=== PATIENT | female | born 1985 | race Caucasian/White ===

== ENCOUNTER 2016-10-20 06:54 | Emergency (ER) | payer BC ==
[2016-10-20 07:10] VITALS: TEMP 98.2; O2SAT 99
--- NOTE | 2016-10-20 07:36 | ED PDOC ---
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 Patient notes intermittent brown/pink spotting through out secondary to a hematoma, notes last U/S 1 week ago normal with no hematoma seen and bleeding today is bright red. Patient denies abdominal pain, back pain, nausea, vomiting, urine changes or weakness. No weakness. 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 Finney Past Medical History Reviewed: Historical Data, Nursing Documentation, Vital Signs Vital Signs: Last Vital Signs Temp 98.2 F 10/20/16 07:05 Pulse 101 H 10/20/16 07:05 Resp 14 10/20/16 07:05 BP 118/76 10/20/16 07:05 Pulse Ox 99 10/20/16 07:05 - Medical History PMH: No Chronic Diseases - Surgical History Surgical History: No Surg Hx - Family History Family History: States: No Known Family Hx - Living Arrangements Living Arrangements: With Family - Allergies Allergies/Adverse Reactions: Allergies Allergy/AdvReac Type Severity Reaction Status Date / Time No Known Allergies Allergy Verified 10/20/16 08:01 Review of Systems ROS Statement: Except As Marked, All Systems Reviewed And Found Negative Constitutional: Negative for: Weakness Cardiovascular: Negative for: Chest Pain, Palpitations Respiratory: Negative for: Shortness of Breath Gastrointestinal: Negative for: Nausea, Vomiting, Abdominal Pain Genitourinary Female: Positive for: Vaginal Bleeding. Negative for: Dysuria, Hematuria Neurological: Negative for: Weakness Physical Exam - Reviewed Nursing Documentation Reviewed: Yes Vital Signs Reviewed: Yes - Physical Exam Appears: Positive for: Non-toxic, No Acute Distress Skin: Positive for: Normal Color, Warm. Negative for: Pallor Eye Exam: Positive for: Normal appearance Neck: Positive for: Normal, Painless ROM Cardiovascular/Chest: Positive for: Regular Rate, Rhythm. Negative for: Murmur Respiratory: Positive for: Normal Breath Sounds. Negative for: Respiratory Distress Gastrointestinal/Abdominal: Positive for: Normal Exam. Negative for: Tenderness Back: Positive for: Normal Inspection. Negative for: L CVA Tenderness, R CVA Tenderness Extremity: Positive for: Normal ROM. Negative for: Tenderness, Pedal Edema Neurologic/Psych: Positive for: Alert, Oriented - Laboratory Results Result Diagrams: 10/20/16 08:20 10/20/16 08:20 Interpretation Of Abn Labs: no acute - ECG O2 Sat by Pulse Oximetry: 99 (RA) Pulse Ox Interpretation: Normal - Progress ED Course And Treament: 913: Spoke with Dr. Espinoza. Well aware of pt. Pt. is very aggressive in her office and on evaluations as well. She is aware of all findings here. Wants pt. to be dc and fu with her. Stable. AAOx3. Pain free. Tolerated PO. Pt. has been aggressive with staff and noncompliant throughout ER visit. Medical Decision Making Medical Decision Making: Time: 0710 Initial impression: Threatened Initial plan: -- ABO/RH -- Type and screen -- Beta-HcG -- CMP -- Urine preg -- Urine dip -- CBC -- U/S Scribe Attestation: Documented by Nevaeh Mcginnis acting as a scribe for Feliciano Pruitt MD MD Scribe Attestation: All medical record entries made by the Scribe were at my direction and personally dictated by me. I have reviewed the chart and agree that the record accurately reflects my personal performance of the history, physical exam, medical decision making, and the department course for this patient. I have also personally directed, reviewed, and agree with the discharge instructions and disposition. Disposition - Clinical Impression Clinical Impression: Vaginal bleeding in - Patient ED Disposition Is Patient to be Admitted: No Counseled Patient/Family Regarding: Studies Performed, Diagnosis, Need For Followup - Disposition Referrals: Mauricio Finney MD [Staff Provider] - 10/21/16 Disposition: Routine/Home Disposition Time: 09:15 Condition: STABLE Additional Instructions: Return if not better in 3 days. Instructions: (ED)
[2016-10-20 08:39] LABS: BASO % 0.1 % (0.0-2.0); EOS # 0.1 K/uL (0.0-0.7); EOS % 0.6 % (0.0-4.0); HEMATOCRIT 37.4 % (34.0-47.0); LYMPH % 19.5 % (20.0-40.0); MEAN CELL VOLUME 93.9 fl (81.0-99.0); MEAN CORPUSCULAR HEMOGLOBIN 31.3 pg (27.0-31.0); MEAN CORPUSCULAR HGB CONC 33.3 g/dL (33.0-37.0); MEAN PLATELET VOLUME 7.4 fl (7.2-11.7); MONO # 0.5 K/uL (0.0-0.8); MONO % 4.7 % (0.0-10.0); NEUT # 7.6 K/uL (1.8-7.0); NEUT % 75.1 % (50.0-75.0); RED CELL DISTRIBUTION WIDTH 12.5 % (11.5-14.5); WHITE BLOOD COUNT 10.1 K/uL (4.8-10.8)
[2016-10-20 08:52] LABS: ALB/GLOB RATIO 1.3 (1.0-2.1); ALKALINE PHOSPHATASE 47 U/L (38-126); ALT/SGPT 31 U/L (9-52); AST/SGOT 29 U/L (14-36); BILIRUBIN,TOTAL 0.7 mg/dl (0.2-1.3); BLOOD UREA NITROGEN 9 mg/dl (7-17); CALCIUM 9.3 mg/dL (8.4-10.2); CARBON DIOXIDE 23 mmol/L (22-30); CHLORIDE 104 mmol/L (98-107); GFR AFRICAN-AMERICAN > 60; GLUCOSE,RANDOM 83 mg/dL (65-105); POTASSIUM 3.6 MMOL/L (3.6-5.0); SODIUM 134 mmol/l (132-148); TOTAL PROTEIN 6.9 G/DL (6.3-8.2)
[2016-10-20 09:48] VITALS: BP 110/70; PULSE 90; RESP 18
--- NOTE | 2016-10-20 10:16 | US ---
PROCEDURE: Obstetrical ultrasound examination HISTORY: pain of COMPARISON: Not available TECHNIQUE: Transabdominal and transvaginal FINDINGS: The examination demonstrates a single live intrauterine gestation in variable presentation. The heart rate is 148 beats per minute. A grossly normal quantity of amniotic fluid is visualized. The cervix is closed and measures 4.7 cm in length. A normal anterior placenta is identified. There is no evidence of placenta previa. biometry yields a age of 13 weeks 4 days. The BOBBY by ultrasound is 04/23/2017. The right ovary is not visualized. The left ovary measures 3.0 x 2.7 x 2.0 cm. Normal flow is demonstrated. anatomic evaluation was not performed at this time. Please note that the head circumference to abdominal circumference ratio obtained from biometry is greater than the normal range. Followup is advised with full anatomic evaluation at approximately 20 weeks gestational age. IMPRESSION: Single live intrauterine gestation of approximately 13 weeks 4 days gestational age. heart rate 148. Variable presentation. Anterior placenta. No evidence of placenta previa. Cervix long and closed. Grossly normal amniotic fluid volume. Please note that the head circumference to abdominal circumference ratio is greater than the expected range but this is a very early stage of gestation. Followup with full anatomic evaluation at approximately 20 weeks gestational age is advised.
== END 2016-10-20 09:48 | disposition home or self-care (01) ==
LOC: H.ER 06:54
DX: O46.90 Antepartum hemorrhage, unspecified, unspecified trimester (principal); Z3A.13 13 weeks gestation of pregnancy; N93.9 Abnormal uterine and vaginal bleeding, unspecified